=== PATIENT | female | born 1990 | race Caucasian/White ===

== ENCOUNTER 2024-01-30 00:45 | Emergency (ER) | payer SELFPAY ==
[2024-01-30 00:49] VITALS: BP 175/87; PULSE 68; RESP 20; TEMP 36.9; O2SAT 98; BMI 40.6
[2024-01-30 01:08] LABS: Basophils % 0.3 %; Eosinophils % 0.1 %; Hematocrit 43.6 % (36-47); Lymphocytes # 0.8 10^3/uL (0.8-4.8); Lymphocytes % 6.3 %; Mean Corpuscular HGB Conc 33.3 g/dL (30-55); Mean Corpuscular Hemoglobin 27.4 pg (27-33); Mean Corpuscular Volume 82.3 fl (85-98); Mean Platelet Volume 9.9 fL (7.4-10.4); Monocytes # 0.4 10^3/uL (0.2-0.9); Monocytes % 3.4 %; Neutrophils # 11.38 10^3/uL (1.8-7.7); Neutrophils % 89.7 %; Nucleated Red Blood Cells % 0 %; Platelet Count 398 10^3/cmm (157-399); Red Cell Distribution Width 13.4 % (12.1-15.1); White Blood Count 12.69 10^3/uL (3.29-11.43)
[2024-01-30 01:10] VITALS: BP 148/81; PULSE 73; RESP 16; O2SAT 96
[2024-01-30 01:11] LABS: Charge for UA Resulting for Rev
[2024-01-30 01:14] LABS: Bilirubin Urine 2+ (Negative); Blood Urine Negative (Negative); Glucose Urine UA Negative (Normal); Ketones Urine Negative (Negative); Leukocyte Esterase Urine Trace (Negative); Nitrate Urine Positive (Negative); Protein Urine 1+ (Negative); Urine Appearance Cloudy (CLEAR); Urine Color Dark Yellow (Yellow); pH Urine 5.5 (5-7)
[2024-01-30 01:19] LABS: Bacteria Urine None Seen /hpf; Hyaline Casts Urine 0.81 /lpf; RBC Urine 0-2 /hpf (0-2); Squamous Epithelial Cell Urine 0-5 /hpf (0-5); WBC Urine 0-5 /hpf (0-5)
[2024-01-30 01:23] LABS: Alanine Aminotransferase 267 U/L (0-33); Albumin Level 4.5 g/dL (3.5-5.2); Alkaline Phosphatase 101 U/L (35-105); Anion Gap 18.4 (5-19); Aspartate Amino Transferase 345 U/L (0-32); Blood Urea Nitrogen 8 mg/dL (6-20); Calcium 9.6 mg/dL (8.5-10.5); Carbon Dioxide 20 mmol/L (22-29); Chloride 101 mmol/L (98-107); Creatinine Clr Calc Pharmacy 180.6881; Globulin 3.7 g/dL (1.3-4.6); Glomerular Filtration Rate 97.6 mL/min (90-130); Glucose 190 mg/dL (65-115); Lipase 27 U/L (13-60); Osmolality Calculated 283 mOsm/kg (285-295); Potassium 4.4 mmol/L (3.5-5.1); Sodium 135 mmol/L (136-145); Total Protein 8.2 g/dL (6.6-8.7)
[2024-01-30 01:28] LABS: Specific Gravity, Urine 1.031 (1.005-1.030)
[2024-01-30 01:29] LABS: Add Urine Culture? Yes
[2024-01-30 01:30] VITALS: BP 157/84; PULSE 68; RESP 16; O2SAT 98
--- NOTE | 2024-01-30 01:32 | W.ED.ABDPA2 ---
HPI - Abdominal Pain General: Chief Complaint: Abdominal Pain Stated Complaint: Abd pain Time Seen by Provider: 01/30/24 00:46 History of Present Illness: Patient presents to the ER with some upper abdominal pain that started around 1500. She describes this pain as a really bad cramp. Patient denies any abdominal surgeries. Patient says she took Tums at home and had slight relief. Patient had a bowel movement yesterday. Patient has had this pain a couple times before but it just went away on its own and she never sought treatment for. Upon arrival to the ER patient is pain-free. Related Data: Date of Last Menstrual Period: 01/18/24 Review of Systems General: Reports: 10 or more systems reviewed and unremarkable except in HPI and below [facility] ED Female Reproductive History: Date of last menstrual period: 01/18/24 Physical Exam Const: COMMON NORMALS: no acute distress, average body habitus, patient oriented x3, no limitations, healthy appearing, alert and well nourished HENMT: COMMON NORMALS: normocephalic, atraumatic, hearing grossly normal bilaterally, external ears normal, Normal external nose present and moist oral mucous membranes HEAD & SCALP: normocephalic and atraumatic NOSE: Normal external nose present EXTERNAL EAR: Yes external ears normal Neck/C-Spine: COMMON NORMALS: no JVD Chest: COMMONS NORMALS: normal inspection of the chest and normal palpation of entire chest wall Resp: COMMON NORMALS: normal respiratory effort, No retractions, No use of accessory muscles and clear to auscultation bilaterally AUSCULTATION: clear to auscultation bilaterally Cardio: COMMON NORMALS: no JVD, regular rate, regular rhythm, S1 normal heart sound present, S2 normal heart sound present, No gallops present (Cardio), No clicks present (Cardio), No murmurs present (Cardio) and No rub (Cardio) RATE: regular rate RHYTHM: regular rhythm HEART SOUNDS: S1 normal heart sound present and S2 normal heart sound present GI: COMMON NORMALS: Normal to inspection, nondistended, normoactive bowel sounds present, Soft to palpation, non-tender, No hepatosplenomegaly present and no masses PALPATION: Yes Soft to palpation and Yes No hepatosplenomegaly present Neuro: COMMON NORMALS: patient oriented x3 SENSORIUM/ORIENTATION: Yes alert Course Vital Signs: Vital signs: Vital Signs Temperature 98.5 F 01/30/24 00:49 Pulse Rate 59 L 01/30/24 03:11 Respiratory Rate 16 01/30/24 03:11 Blood Pressure 132/91 01/30/24 03:11 Pulse Oximetry 98 01/30/24 03:11 Oxygen Delivery Me thod Room Air 01/30/24 03:11 MDM - Abdominal Pain Medical Decision Making Patient had abdominal pain labs that included CBC CMP urinalysis lipase performed. Patient's liver enzymes elevated along with her bilirubin. A contrasted CT scan of the abdomen pelvis was obtained urinalysis was performed which showed positive for infection. Patient wanted to leave before her CT results come back. Will call her with any positive results. Patient was given Bactrim DS here in ER. Patient be discharged home with a prescription of Bactrim and we will call her with the results. Differential Diagnosis Likely abdominal pain Medical Records I reviewed the patient's medical records. Lab Data I reviewed the patient's lab results. 01/30/24 01:02 01/30/24 01:02 Labs/Radiology: Laboratory Results WBC 12.69 10^3/uL (3.29-11.43) H 01/30/24 01:02 RBC 5.30 10^6/uL (3.85-5.65) 01/30/24 01:02 Hgb 14.50 g/dL (11.27-16.99) 01/30/24 01:02 Hct 43.6 % (36-47) 01/30/24 01:02 MCV 82.3 fl (85-98) L 01/30/24 01:02 MCH 27.4 pg (27-33) 01/30/24 01:02 MCHC 33.3 g/dL (30-55) 01/30/24 01:02 RDW 13.4 % (12.1-15.1) 01/30/24 01:02 Plt Count 398 10^3/cmm (157-399) 01/30/24 01:02 MPV 9.9 fL (7.4-10.4) 01/30/24 01:02 Neut % (Auto) 89.7 % 01/30/24 01:02 Lymph % (Auto) 6.3 % 01/30/24 01:02 [place] % (Auto) 3.4 % 01/30/24 01:02 Eos % (Auto) 0.1 % 01/30/24 01:02 Baso % (Auto) 0.3 % 01/30/24 01:02 Neut # (Auto) 11.38 10^3/uL (1.8-7.7) H 01/30/24 01:02 Lymph # (Auto) 0.8 10^3/uL (0.8-4.8) 01/30/24 01:02 [place] # (Auto) 0.4 10^3/uL (0.2-0.9) 01/30/24 01:02 Eos # (Auto) 0.0 10^3/uL (0.0-0.8) 01/30/24 01:02 Baso # (Auto) 0.0 10^3/uL (0.0-0.1) 01/30/24 01:02 Nucleated RBC % (auto) 0 % 01/30/24 01:02 Nucleated RBCs # 0.0 /100WBC 01/30/24 01:02 Sodium 135 mmol/L (136-145) L 01/30/24 01:02 Potassium 4.4 mmol/L (3.5-5.1) 01/30/24 01:02 Chloride 101 mmol/L (98-107) 01/30/24 01:02 Carbon Dioxide 20 mmol/L (22-29) L 01/30/24 01:02 Anion Gap 18.4 (5-19) 01/30/24 01:02 BUN 8 mg/dL (6-20) 01/30/24 01:02 Creatinine 0.7 mg/dL (0.5-0.9) 01/30/24 01:02 GFR Calculation 97.6 mL/min (90-130) 01/30/24 01:02 Glucose 190 mg/dL (65-115) H 01/30/24 01:02 Calculated Osmolality 283 mOsm/kg (285-295) L 01/30/24 01:02 Calcium 9.6 mg/dL (8.5-10.5) 01/30/24 01:02 Magnesium 2.0 mg/dL (1.7-2.3) 01/30/24 01:02 Total Bilirubin 2.0 mg/dL (0.15-1.2) H 01/30/24 01:02 AST 345 U/L (0-32) H 01/30/24 01:02 ALT 267 U/L (0-33) H 01/30/24 01:02 Alkaline Phosphatase 101 U/L (35-105) 01/30/24 01:02 Total Protein 8.2 g/dL (6.6-8.7) 01/30/24 01:02 Albumin 4.5 g/dL (3.5-5.2) 01/30/24 01:02 Globulin 3.7 g/dL (1.3-4.6) 01/30/24 01:02 Lipase 27 U/L (13-60) 01/30/24 01:02 Urine Color Dark yellow (Yellow) A 01/30/24 01:02 Urine Appearance Cloudy (CLEAR) A 01/30/24 01:02 Urine pH 5.5 (5-7) 01/30/24 01:02 Ur Specific [place] 1.031 (1.005-1.030) H 01/30/24 01:02 Urine Protein 1+ (Negative) A 01/30/24 01:02 Urine Glucose (UA) Negative (Normal) 01/30/24 01:02 Urine Ketones Negative (Negative) 01/30/24 01:02 Urine Blood Negative (Negative) 01/30/24 01:02 Urine Nitrate Positive (Negative) A 01/30/24 01:02 Urine Bilirubin 2+ (Negative) H 01/30/24 01:02 Urine Urobilinogen 1.0 mg/dL (Negative) 01/30/24 01:02 Ur Leukocyte Esterase Trace (Negative) A 01/30/24 01:02 Urine RBC 0-2 /hpf (0-2) 01/30/24 01:02 Urine WBC 0-5 /hpf (0-5) 01/30/24 01:02 Ur Squamous Epith Cells 0-5 /hpf (0-5) 01/30/24 01:02 Amorphous Sediment Not Reportable 01/30/24 01:02 Urine Bacteria None seen /hpf (NONE) 01/30/24 01:02 Hyaline Casts 0.81 /lpf 01/30/24 01:02 XR interpretation done by ED provider, pending radiology final review Discharge Plan Discharge Patient Disposition: Home Clinical Impression: Elevated liver enzymes Urinary tract infection Qualifiers: Urinary tract infection type: acute cystitis Hematuria presence: with hematuria Qualified Code(s): N30.01 - Acute cystitis with hematuria Abdominal pain Qualifiers: Abdominal location: epigastric Qualified Code(s): R10.13 - Epigastric pain Condition: Stable Prescriptions: New Bactrim DS 800-160 mg tablet 1 tab PO BID Qty: 14 0RF Discharge Orders: Discharge ED (Routine); Ordered 01/30/24 Ordered By: Vega Lawrence Referrals: Lan Platt MD [Primary Care Provider] - 1 week Patient Instructions: Abdominal Pain (ED), Urinary Tract Infection in Women (DC) Activity Restrictions/Additional Instructions: Your workup in the ER showed you have a urinary tract infection, you were prescribed an antibiotic that should take care of this. Your liver enzymes are also elevated. You have a CT scan of your abdomen and pelvis with results pending. Will call you with any positive results. Otherwise follow-up with your family practice physician within the next 7 to 10 days for further recheck of your liver enzymes and recheck of your urinary tract infection. If your pain returns or worsens please feel free to return to the ER. Please take all your medicine as prescribed. Coding Level of Care Code ED [employer] for [employer]
--- NOTE | 2024-01-30 01:39 | CTR_ITS ---
PROCEDURE INFORMATION: Exam: CT Abdomen And Pelvis With Contrast Exam date and time: 01/30/2024 1:49 AM Age: 33 years old Clinical indication: Abdominal tenderness and nausea and vomiting; Abdominal pain; Localized; Upper; Additional info: Epigastric abd pain, n/v/ elevated lfts/bili TECHNIQUE: Imaging protocol: Computed tomography of the abdomen and pelvis with contrast. Radiation optimization: All CT scans at this facility use at least one of these dose optimization techniques: automated exposure control; mA and/or kV adjustment per patient size (includes targeted exams where dose is matched to clinical indication); or iterative reconstruction. Contrast material: OMNI 350; Contrast volume: 100 ml; Contrast route: INTRAVENOUS (IV); COMPARISON: No relevant prior studies available. RADIATION DOSE METRICS: Total DLP (mGy-cm): 1413.03 FINDINGS: Lungs: The visualized lung bases are clear. Liver: Mild steatosis likely. No enhancing mass. Gallbladder and biliary ducts: No calcified gallstones or biliary dilation identified. Pancreas: Unremarkable with no suspicious mass. No ductal dilation. Spleen: The spleen is not enlarged. No suspicious enhancing mass is noted. Adrenal glands: Normal. No mass. Kidneys and ureters: No solid renal mass or hydronephrosis. Stomach and bowel: No small bowel obstruction or free air. No overt mucosal thickening. Appendix: No evidence of appendicitis. Intraperitoneal space: Unremarkable. No free air. No suspicious fluid collection. Vasculature: No AAA or acute vascular lesion identified. A retroaortic left renal vein is present. Lymph nodes: No enlarged lymph nodes. Urinary bladder: Unremarkable as visualized. Reproductive: Unremarkable as visualized. Bones/joints: No acute fracture. Soft tissues: No acute or suspicious finding noted. Tiny fat umbilical hernia. CT/CT abdomen pelvis w con* [id number] IMPRESSION: 1. No acute findings. 2. Hepatic steatosis.
[2024-01-30] MEDS: sulfamethoxazole-trimeth DS 160-800 mg Tablet 1 TAB PO (01:43)
[2024-01-30] MEDS: iohexol 350 mg/mL 500 mL Btl (per mL) 100 ML IV (02:06)
[2024-01-30 03:11] VITALS: BP 132/91; PULSE 59; RESP 16; O2SAT 98
[2024-01-30 05:40] VITALS: BP 131/87; PULSE 78; RESP 16; TEMP 36.9; O2SAT 98
== END 2024-01-30 05:42 | disposition home or self-care (01) ==
PROVIDERS: Emergency Provider Emergency Medicine; PCP Family Medicine
DX: N30.01 Acute cystitis with hematuria (principal); R74.8 Abnormal levels of other serum enzymes; R10.13 Epigastric pain
CPT/HCPCS: 74177; 80053; 81003; 81015; 83690; 83735; 85025; 87086; 99285; Q9967

== ENCOUNTER → 2024-02-08 14:21 | Outpatient (BNVA) | payer SELFPAY | PROVIDERS: PCP Family Medicine; Visit Provider Family Medicine | DX: K83.1 Obstruction of bile duct (principal) | CPT/HCPCS: 80053; 85025 ==